=== PATIENT | male | born 1990 | race Caucasian/White ===

== ENCOUNTER → 2016-11-18 | Outpatient (CLI) | payer BC ==
[2016-11-18 17:46] LABS: CHOLESTEROL/HDL RATIO 5.7
[2016-11-18 18:51] LABS: LYME DISEASE AB IGM NEG (NEG)
[2016-11-18 18:54] LABS: LYME DISEASE AB IGG NEG (NEG)
== END | disposition home or self-care (01) ==
LOC: C.LABBFT 15:32
PROVIDERS: ATTEND Internal Medicine
DX: T14.8 Other injury of unspecified body region (principal); W57.XXXA Bitten or stung by nonvenomous insect and other nonvenomous arthropods, initial encounter; Z13.6 Encounter for screening for cardiovascular disorders